=== PATIENT | female | born 1940 | race Caucasian/White ===

== ENCOUNTER → 2020-07-03 16:56 | Outpatient (BNVA) | payer MEDICARE, MEDICAID, SELFPAY | PROVIDERS: Visit Provider Nurse Practitioner Family | DX: R30.0 Dysuria (principal) | CPT/HCPCS: 80053; 81003; 87077; 87086; 87186 ==

== ENCOUNTER → 2020-07-10 10:12 | Outpatient (BNVA) | payer MEDICARE, MEDICAID, SELFPAY | PROVIDERS: Visit Provider Nurse Practitioner Family | DX: R30.0 Dysuria (principal) | CPT/HCPCS: 81000; 87086 ==

== ENCOUNTER 2025-06-02 18:43 | Emergency (ER) | payer MEDICARE, MEDICAID, SELFPAY ==
--- NOTE | 2025-06-02 18:46 | ECG_ITS ---
[facility] Test Date: 2025-06-02 Pat Name: Brandy Santos Department: Room: Gender: Female Supervisor Decorating: : 1940 Requested By: Tay Reynoso Order Number: [id number] Nikky MD: Adela Le M.D. Measurements Intervals [place] Rate: 99 P: 81 WI: 196 QRS: 81 QRSD: 97 T: 80 QT: 322 QTc: 415 Interpretive Statements SINUS RHYTHM No previous ECG available for comparison Possible left atrial enlargement Electronically Signed On 06-03-2025 18:55:41 CDT by Adela Le M.D. [email or web address]
[2025-06-02 18:48] VITALS: BP 177/93; PULSE 96; RESP 17; TEMP 36.9; O2SAT 94; BMI 20.6
--- NOTE | 2025-06-02 19:24 | XRR_ITS ---
PROCEDURE INFORMATION: Exam: XR Chest Exam date and time: 06/02/2025 7:46 PM Age: 84 years old Clinical indication: Shortness of breath; Additional info: SOB TECHNIQUE: Imaging protocol: Radiologic exam of the chest. Views: 1 view. COMPARISON: No relevant prior studies available. FINDINGS: Lungs: Ill-defined ring-like opacity in the peripheral aspect of the right upper lobe may represent a cavitary lesion. Pleural spaces: Unremarkable. No pleural effusion. No pneumothorax. Heart/Mediastinum: Unremarkable. No cardiomegaly. Vasculature: Aortic calcifications. Bones/joints: Unremarkable. XR/XR chest 1V portable [id number] IMPRESSION: Ill-defined ring-like opacity in the peripheral aspect of the right upper lobe may represent a cavitary lesion. Recommend follow-up CT chest for further evaluation.
--- NOTE | 2025-06-02 19:25 | ED_ITS ---
HPI - Wound/Laceration 2 General: Chief Complaint: Skin/Abscess/Foreign Body Stated Complaint: rash on foot Time Seen by Provider: 06/02/25 19:02 Source: patient and family Mode of arrival: ambulatory Limitations: no limitations History of Present Illness: This patient made her way to the emergency department today accompanied by her daughter with whom she lives. The primary thing that brought her to the emergency department was an area of redness and inflammation on the side of her right foot. She states it has been there several days and initially had no clue of how it came to be. She also parenthetically noted that she had an episode today where she felt like she could not get a deep breath in but that has resolved and did not return. There was no concomitant chest pain, fever, chills etc. She has no known coronary artery disease and takes no daily medications. She is a former smoker having discontinued approximately 11 years ago. She denies productive or nonproductive cough wheezing etc. She as noted she lives with her daughter and does not leave the house much other than to walk around and engage in gardening and yard work. Her daughter has not been ill and has no current ongoing medical issues. There have been no insect infestations in the home and she does not recall being bitten or stung by any insect or pulling a tick off of her. She denies any nocturnal dyspnea, dyspnea with exertion etc. She states that the episode she had today very transient and short-lived and she is not sure if it was related to anything at all. Rest of her constitution is unchanged from usual she has been eating normally drinking normally eliminating both urine and stooling normally. She is unaware of her last tetanus shot. While we were still in the initial stages of her evaluation she had an off-and-on moment and realized that she had been using a dry skin debrider device and she thinks that that is probably the cause of her skin rash to the right side of her lower foot. She thinks that she was inadvertently treating her dry skin and calluses and may have scratched her skin with a device which she describes as a cheese grater. Associated symptoms: Denies chills, fever(s), nausea, syncope or vomiting Related Data Home Medications ?Medication ?Instructions ?Recorded ?Confirmed No Known Home Medications 07/03/2006/12 Previous Rx's ?Medication ?Instructions ?Recorded sulfamethoxazole 800 1 tab PO BID 7 days #14 tabs 07/10/20 mg-trimethoprim 160 mg tablet (Bactrim DS) Allergies Allergy/AdvReac Type Severity Reaction Status Date / Time No Known Allergies Allergy Verified 07/03/20 16:10 Review of Systems 2 Const: Denies: fever(s) or chills Eyes: Denies: change in vision ENMT: Denies: odynophagia, nasal congestion or nasal obstruction Card: Denies: palpitations, irregular heart rhythm, syncope or pre-syncope Resp: Denies: productive cough, non-productive cough or wheezing GI: Denies: nausea, vomiting or diarrhea : Denies: difficulty voiding or dysuria Musc: Denies: neck pain or back pain Skin/Breast: Reports: rash and erythema; Denies: pruritus Neuro: Denies: headache(s), numbness in extremities or weakness in extremities Psych: Denies: anxiety or depression Canelo/Lymph: Denies: easy bruising or easy bleeding PFSH ED 2 PFSH: Medical History No pertinent past medical history Surgical History Hx of hysterectomy, total Hx of rhinoplasty Family History Mother , 79; colon CA Cancer Denies family history of Diabetes CAD (coronary artery disease) Clotting disorder Dementia Bleeding disorder Stroke Social History Smoking and tobacco/nicotine status: former use of tobacco/nicotine Quit status (tobacco/nicotine): has quit using Year quit tobacco: 2014 Former quit date comment: smoked PPD x 35 Second hand smoke exposure: No Alcohol intake: current Alcohol intake frequency: few times a month Alcohol type: beer Substance/Drug Use: never Caregiver/support person: Yes Lives independently: No Household members: family Marital status: / Current occupational status: retired Current gender identity: Female Special russell needs: No Agree to transfusion: Yes Physical Exam 2 Narrative: EXAM NARRATIVE: She is quite in her gait engaging and interactive. Appears younger than stated age. She is in no acute distress and talks without dyspnea in complete sentences. Const: COMMON NORMALS: no acute distress, average body habitus, patient oriented x3, healthy appearing and alert GENERAL APPEARANCE: cooperative and comfortable HENMT: COMMON NORMALS: atraumatic, moist oral mucous membranes and oropharynx normal HEAD & SCALP: atraumatic Eye: COMMON NORMALS: Equal, round and reactive pupils present and conjunctivae normal CONJUNCTIVA: Yes conjunctivae normal PUPIL: Yes Equal, round and reactive pupils present Neck/C-Spine: COMMON NORMALS: full ROM, no JVD and No carotid bruits Chest: COMMONS NORMALS: normal inspection of the chest Resp: COMMON NORMALS: normal respiratory effort, No use of accessory muscles and clear to auscultation bilaterally EFFORT & INSPECTION: Yes able to speak in complete sentences AUSCULTATION: clear to auscultation bilaterally Cardio: COMMON NORMALS: no JVD, regular rate, regular rhythm, No murmurs present (Cardio) and Peripheral pulses 2+ throughout RATE: regular rate R HYTHM: regular rhythm PERIPHERAL PULSES: Peripheral pulses 2+ throughout Back/Pelvis: COMMON NORMALS: thoracic and lumbar spine normal to inspection, no thoracic nor lumbar tenderness and thoraco-lumbar ROM normal Extremity: COMMON NORMALS: full ROM, capillary refill normal, no joint enlargement, no clubbing, cyanosis or edema, no calf tenderness and no pedal edema NARRATIVE EXTREMITY EXAM: She has a patch on the distal right lateral foot inferior to the lateral malleolus which measures approximately 2 and half centimeters by 4 cm. It is excoriated and has a healing eschar. There is no surrounding erythema or cellulitis. There is no drainage or discharge the area is dry. Not petechial in nature. Neuro: COMMON NORMALS: patient oriented x3, moves all extremities, no focal motor deficits and no sensory deficits noted SENSORIUM/ORIENTATION: Yes alert Skin: COMMON NORMALS: turgor normal and no petechiae NARRATIVE SKIN EXAM: Skin exam is notable for the patch noted in the extremity exam just inferior to the right lateral malleolus which measures approximately 3 x 4 cm or thereabouts with dry healing crust without drainage serpiginous borders, surrounding erythema ascending erythema or a ascending lymphangitis. GENERAL SKIN EXAM: turgor normal Course 2 Reevaluation(s): Reevaluation #1: I had an honest discussion with the patient regarding additional evaluation after the intake examination revealed no findings of concern. I asked her if she wanted me to pursue any workup of the transient shortness of breath sensation she had earlier today and after some contemplation and discussion she agreed to do a limited evaluation. Time: 19:32 Reevaluation #2: Patient's findings us evening are reassuring without any evidence of heart failure, EKG looks reassuring, chest x-ray is also reassuring. She is not tachycardic, hypoxic or otherwise displaying any concerning findings at this time. She has been using a topical cream which sounds like she has been using steroid on this abraded area and I advised her to stop using the steroid as I think that is prolonging the healing process and just use normal soap and water and keep it covered to protect it and allow it to heal. There is no evidence at this time of cellulitis, other concerning findings. She voices understanding and desires to be discharged at this time. I think that is appropriate I did furnace process supervisor encouraged her to obtain a blood pressure cuff and start monitoring her blood pressure. Time: 20:23 Vital Signs: Vital signs: Vital Signs Temperature 98.4 F 06/02/25 18:48 Pulse Rate 82 06/02/25 20:16 Respiratory Rate 17 06/02/25 18:48 Blood Pressure 166/95 06/02/25 20:16 Pulse Oximetry 95 06/02/25 20:16 Oxygen Delivery Me thod Room Air 06/02/25 20:16 MDM - Wound/Laceration Medical Decision Making This patient presented as noted in the history of present illness. Initially she was somewhat perplexed on what had happened to her foot and then she named her realization as we reviewed her history. Certainly does not look to be infected, have any evidence of cellulitis or other concerning findings. We have advised her to stop using what sounds like a steroid cream to allow this to heal in a natural process. Her tetanus was updated. She had a transient feeling of breathlessness earlier today and while I did not feel that that was a clinically significant issue I did offer her a workup in a limited fashion which she endorsed. That was reassuring without any evidence to suggest pneumonia, heart failure, other concerning findings. She is at low risk for thromboembolic disease and did not display any other concerning findings such as hypoxia tachycardia etc. She is not dyspneic with normal activity at this time. At this point she is stable to be discharged to home we discussed home care of her abraded skin as well as follow-up for any worsening symptoms or any other new symptoms. Lab Data I reviewed the patient's lab results. 06/02/25 19:41 06/02/25 19:41 Laboratory Results WBC 9.36 10^3/uL (3.29-11.43) 06/02/25 19:41 RBC 4.49 10^6/uL (3.85-5.65) 06/02/25 19:41 Hgb 14.70 g/dL (11.27-16.99) 06/02/25 19:41 Hct 44.4 % (36-47) 06/02/25 19:41 MCV 98.9 fl (85-98) H 06/02/25 19:41 MCH 32.7 pg (27-33) 06/02/25 19:41 MCHC 33.1 g/dL (30-55) 06/02/25 19:41 RDW 13.8 % (12.1-15.1) 06/02/25 19:41 Plt Count 288 10^3/cmm (157-399) 06/02/25 19:41 MPV 9.7 fL (7.4-10.4) 06/02/25 19:41 Neut % (Auto) 71.9 % 06/02/25 19:41 Lymph % (Auto) 18.5 % 06/02/25 19:41 [place] % (Auto) 8.3 % 06/02/25 19:41 Eos % (Auto) 0.5 % 06/02/25 19:41 Baso % (Auto) 0.5 % 06/02/25 19:41 Neut # (Auto) 6.72 10^3/uL (1.8-7.7) 06/02/25 19:41 Lymph # (Auto) 1.7 10^3/uL (0.8-4.8) 06/02/25 19:41 Franklin # (Auto) 0.8 10^3/uL (0.2-0.9) 06/02/25 19:41 Eos # (Auto) 0.1 10^3/uL (0.0-0.8) 06/02/25 19:41 Baso # (Auto) 0.1 10^3/uL (0.0-0.1) 06/02/25 19:41 Nucleated RBC % (auto) 0 % 06/02/25 19:41 Nucleated RBCs # 0.0 /100WBC 06/02/25 19:41 Sodium 146 mmol/L (136-145) H 06/02/25 19:41 Potassium 4.2 mmol/L (3.5-5.1) 06/02/25 19:41 Chloride 103 mmol/L (98-107) 06/02/25 19:41 Carbon Dioxide 30 mmol/L (22-29) H 06/02/25 19:41 Anion Gap 17.2 (5-19) 06/02/25 19:41 BUN 20 mg/dL (8-23) 06/02/25 19:41 Creatinine 0.6 mg/dL (0.5-0.9) 06/02/25 19:41 GFR Calculation Not Reportable 06/02/25 19:41 Glucose 118 mg/dL (65-115) H 06/02/25 19:41 Calculated Osmolality 306 mOsm/kg (285-295) H 06/02/25 19:41 Calcium 9.6 mg/dL (8.5-10.5) 06/02/25 19:41 Magnesium 2.2 mg/dL (1.7-2.3) 06/02/25 19:41 NT-Pro-B Natriuret Pep 115 pg/mL (0-450) 06/02/25 19:41 XR interpretation done by ED provider, pending radiology final review ED provider radiology interpretation(s): No acute disease. Normal heart size EKG Data EKG 1: I personally reviewed and interpreted this EKG as follows: Interpretation: Contemporaneous review of resting EKG reveals a ventricular rate of 99 bpm with a normal CA interval, normal QRS duration normal corrected QT interval. Normal axis. Normal ST-T wave segments without any ischemic changes at this time. Discharge Plan Discharge Patient Disposition: Home Clinical Impression: Abrasion foot/toe Qualifiers: Encounter type: initial encounter Laterality: right Qualified Code(s): S90.811A - Abrasion, right foot, initial encounter Condition: Stable Prescriptions: No Action No Known Home Medications sulfamethoxazole-trimethoprim [Bactrim DS] 800-160 mg tablet 1 tab PO BID 7 Days Qty: 14 0RF Discharge Orders: Discharge ED (Routine); Ordered 06/02/25 Ordered By: Pollo Goldberg Referrals: Tricia Salas FNP [Primary Care Provider, Family Practice] Discharge Diet: Usual diet and Low Salt Discharge Activity: Resume usual activity Patient Instructions: Opioid Safety, Pain Management, Patient Portal & Germaine Instructions Activity Restrictions/Additional Instructions: As we discussed your evaluation in the emergency department this evening did not find any concerning conditions. As we discussed the abraded area on your right foot should heal normally however we do not recommend that you use the cream that you have been using on that area. You should use normal soap and water and keep it covered and allow it to heal in a natural process. If within a week it is not healed or if it is worse at any time you should return to the emergency department for reevaluation. We also recommend obtaining a blood pressure cuff and monitoring her blood pressure over the next month. If it remains elevated over the 140/90 number consistently you should follow-up with the regular doctor for reevaluation and consideration of treatment. If you develop any recurrent shortness of breath, chest pain or any other concerns at any time return to the emergency department for reevaluation. Print Language: Serbian Coding Level of Care Code ED Cogeneration Operator for Elissa Swenson
[2025-06-02] MEDS: tetanus-dipt-pertussis 0.5 mL SDV IM (19:44)
[2025-06-02 19:47] LABS: Hematocrit 44.4 % (36-47); Hemoglobin 14.70 g/dL (11.27-16.99); Mean Corpuscular HGB Conc 33.1 g/dL (30-55); Mean Corpuscular Hemoglobin 32.7 pg (27-33); Mean Corpuscular Volume 98.9 fl (85-98); Nucleated Red Blood Cells % 0 %; Platelet Count 288 10^3/cmm (157-399); Red Blood Count 4.49 10^6/uL (3.85-5.65); White Blood Count 9.36 10^3/uL (3.29-11.43)
[2025-06-02 20:12] LABS: Anion Gap 17.2 (5-19); Blood Urea Nitrogen 20 mg/dL (8-23); Calcium 9.6 mg/dL (8.5-10.5); Carbon Dioxide 30 mmol/L (22-29); Chloride 103 mmol/L (98-107); Creatinine Clr Calc Pharmacy 45.2102; Glucose 118 mg/dL (65-115); Magnesium 2.2 mg/dL (1.7-2.3); NT Pro B Type Natriuretic Pept 115 pg/mL (0-450); Osmolality Calculated 306 mOsm/kg (285-295); Potassium 4.2 mmol/L (3.5-5.1); Sodium 146 mmol/L (136-145)
[2025-06-02 20:16] VITALS: BP 166/95; PULSE 82; O2SAT 95
[2025-06-02 20:40] VITALS: BP 147/72; PULSE 77; O2SAT 93
== END 2025-06-02 20:44 | disposition home or self-care (01) ==
PROVIDERS: Emergency Provider Emergency Medicine; PCP Nurse Practitioner Family
DX: S90.811A Abrasion, right foot, initial encounter (principal); X58.XXXA Exposure to other specified factors, initial encounter; Z23 Encounter for immunization
CPT/HCPCS: 36415; 71045; 80048; 83735; 83880; 85025; 90471; 90715; 93005; 99285